=== PATIENT | male | born 1975 | race Caucasian/White ===

== ENCOUNTER 2024-02-26 20:55 | Inpatient (IN) | payer SELFPAY ==
[2024-02-26 20:59] VITALS: BP 153/90; PULSE 81; RESP 18; TEMP 36.6; O2SAT 92; BMI 27.8
--- NOTE | 2024-02-26 21:24 | ED.C_ITS ---
HPI - Psych 2 General: Chief Complaint: Psychiatric Symptoms Stated Complaint: MHE Time Seen by Provider: 02/26/24 21:09 Source: patient Mode of arrival: EMS Limitations: no limitations History of Present Illness: Patient is a 48-year-old male brought into the emergency department by ambulance due to suicidal ideations worsening over the past few days, though notes chronic history of similar. He states he is from [place] recently moved down here not too long ago and is currently staying in couple at a treatment facility centered around jainism believes, and states that since doing so he has been off his psychiatric meds. He reports to me a history of PTSD, anxiety, and depression, and states these have slowly been worsening since a family incident that he does not specify on He states that he started walking to the emergency department tonight but had an ambulance called on his behalf by bystander, and is tearful and anxious on presentation to the emergency department. States he can feel feelings of suicidal ideations building up inside him where he is getting more aggressive and believes that he is a danger to himself. He is compliant with an admission to a psychiatric facility at this time, reports history of previous. His plan at this time is to jump in front of a car, denies any attempts. He is denying any homicidal ideations, hallucinations, drug use, or other symptoms at this time. MD complaint: suicidal ideation and feels depressed Duration: constant and getting worse History of same: Yes Context: not taking psychiatric medications Associated psychiatric symptoms: depression and suicidal ideation Associated symptoms: Reports depression and suicidal ideation; Deny auditory hallucinations, visual hallucinations or homicidal ideation Treatments prior to arrival: none If self harm: admits thoughts of self harm and has plan Review of Systems 2 General: Reports: 10 or more systems reviewed and unremarkable except in HPI and below Const: Denies: fever(s), chills or fatigue Eyes: Denies: change in vision ENMT: Denies: throat pain, ear or mastoid pain or nasal discharge Card: Denies: chest pain, palpitations, swelling of feet/ankles or lightheadedness Resp: Denies: dyspnea, productive cough or wheezing GI: Denies: abdominal pain, nausea, vomiting, diarrhea or constipation : Denies: flank pain, difficulty urinating, dysuria or urinary frequency Musc: Denies: neck pain, back pain or joint pain Skin/Breast: Denies: rash Neuro: Denies: headache(s), numbness in extremities or weakness in extremities Psych: Reports: anxiety, depression and suicidal ideation; Denies: visual hallucinations, auditory hallucinations, tactile hallucinations or homicidal ideation Physical Exam 2 Const: COMMON NORMALS: no acute distress, patient oriented x3 and no limitations GENERAL APPEARANCE: cooperative, comfortable and well developed ORIENTATION/CONSCIOUSNESS: Yes awake, Yes oriented to person, Yes oriented to place and Yes oriented to time HENMT: COMMON NORMALS: normocephalic, atraumatic and hearing grossly normal bilaterally HEAD & SCALP: normocephalic and atraumatic Eye: COMMON NORMALS: Equal, round and reactive pupils present, EOMs intact bilaterally and conjunctivae normal CONJUNCTIVA: Yes conjunctivae normal P UPIL: Yes Equal, round and reactive pupils present Neck/C-Spine: COMMON NORMALS: full ROM, supple and no JVD Resp: COMMON NORMALS: normal respiratory effort, No retractions, No use of accessory muscles and clear to auscultation bilaterally AUSCULTATION: clear to auscultation bilaterally Cardio: COMMON NORMALS: no JVD, regular rate, regular rhythm, No clicks present (Cardio), No murmurs present (Cardio) and No rub (Cardio) RATE: r egular rate RHYTHM: regular rhythm Extremity: COMMON NORMALS: normal to inspection, full ROM and capillary refill normal Neuro: COMMON NORMALS: patient oriented x3, moves all extremities, no focal motor deficits and no sensory deficits noted SENSORIUM/ORIENTATION: Yes oriented to person, Yes oriented to place and Yes oriented to time Psych: COMMON NORMALS: mental status grossly normal and Normal thought process present APPEARANCE: Yes grossly normal ATTITUDE: Yes calm A CTIVITY/MOTOR BEHAVIOR: Yes Avoids eye contact (attititude/behavior) SPEECH: Yes soft MOOD & AFFECT: Yes anxious and Yes tearful THOUGHT PROCESS: N ormal thought process present THOUGHT CONTENT: Yes Suicidality present, No Homicidality present and No Hallucination(s) present ATTENTION/CONCENTRATION: Yes attention grossly intact MEMORY/COGNITION: Yes memory grossly intact Skin: COMMON NORMALS: no rashes or lesions noted GENERAL SKIN EXAM: no rashes or lesions noted Course 2 Vital Signs: Vital signs: Vital Signs Temperature 98 F 02/26/24 20:59 Pulse Rate 81 02/26/24 20:59 Respiratory Rate 18 02/26/24 20:59 Blood Pressure 153/90 02/26/24 20:59 Pulse Oximetry 92 02/26/24 20:59 MDM - Psych Medical Decision Making Patient was brought in by ambulance for suicidal ideations, worsening since unspecified incident with family. Has been off his medications for some time due to being in a jainism recovery system were they do not believe in medications, per the patient. Is compliant with admission at this time, states his suicidal ideations are building and plan was to jump in front of a car. Did speak with Dr. Hairston who agrees to accept the patient for admission to the NPU. Patient cleared medically. Dr. Thomast to put in admit orders at this time. Lab Data 02/26/24 21:45 02/26/24 21:45 Laboratory Results WBC 8.05 10^3/uL (3.29-11.43) 02/26/24 21:45 RBC 4.95 10^6/uL (3.85-5.65) 02/26/24 21:45 Hgb 15.50 g/dL (11.27-16.99) 02/26/24 21:45 Hct 46.2 % (37-53) 02/26/24 21:45 MCV 93.3 fl (82-101) 02/26/24 21:45 MCH 31.3 pg (27-33) 02/26/24 21:45 MCHC 33.5 g/dL (30-55) 02/26/24 21:45 RDW 12.2 % (12.1-15.1) 02/26/24 21:45 Plt Count 209 10^3/cmm (157-399) 02/26/24 21:45 MPV 10.3 fL (7.4-10.4) 02/26/24 21:45 Neut % (Auto) 67.4 % 02/26/24 21:45 Lymph % (Auto) 22.7 % 02/26/24 21:45 [place] % (Auto) 8.2 % 02/26/24 21:45 Eos % (Auto) 0.7 % 02/26/24 21:45 Baso % (Auto) 0.6 % 02/26/24 21:45 Neut # (Auto) 5.42 10^3/uL (1.8-7.7) 02/26/24 21:45 Lymph # (Auto) 1.8 10^3/uL (0.8-4.8) 02/26/24 21:45 [place] # (Auto) 0.7 10^3/uL (0.2-0.9) 02/26/24 21:45 Eos # (Auto) 0.1 10^3/uL (0.0-0.8) 02/26/24 21:45 Baso # (Auto) 0.1 10^3/uL (0.0-0.1) 02/26/24 21:45 Nucleated RBC % (auto) 0 % 02/26/24 21:45 Nucleated RBCs # 0.0 /100WBC 02/26/24 21:45 Sodium 141 mmol/L (136-145) 02/26/24 21:45 Potassium 4.3 mmol/L (3.5-5.1) 02/26/24 21:45 Chloride 104 mmol/L (98-107) 02/26/24 21:45 Carbon Dioxide 27 mmol/L (22-29) 02/26/24 21:45 Anion Gap 14.3 (5-19) 02/26/24 21:45 BUN 12 mg/dL (6-20) 02/26/24 21:45 Creatinine 1.0 mg/dL (0.7-1.2) 02/26/24 21:45 GFR Calculation 80.4 mL/min (90-130) L 02/26/24 21:45 Glucose 122 mg/dL (65-115) H 02/26/24 21:45 Calculated Osmolality 293 mOsm/kg (285-295) 02/26/24 21:45 Calcium 9.5 mg/dL (8.5-10.5) 02/26/24 21:45 Total Bilirubin 0.5 mg/dL (0.15-1.2) 02/26/24 21:45 AST 28 U/L (0-40) 02/26/24 21:45 ALT 46 U/L (0-41) H 02/26/24 21:45 Alkaline Phosphatase 93 U/L (40-130) 02/26/24 21:45 Total Protein 7.3 g/dL (6.6-8.7) 02/26/24 21:45 Albumin 4.7 g/dL (3.5-5.2) 02/26/24 21:45 Globulin 2.6 g/dL (1.3-4.6) 02/26/24 21:45 Salicylates < 0.3 mg/dL (3-10) L 02/26/24 21:45 Urine Opiates Screen Negative ng/mL (Negative) 02/26/24 21:39 Acetaminophen < 5.0 ug/mL (10-30) L 02/26/24 21:45 Ur Barbiturates Screen Negative ng/mL (Negative) 02/26/24 21:39 Ur Phencyclidine Scrn Negative ng/mL (Negative) 02/26/24 21:39 Ur Amphetamines Screen Negative ng/mL (Negative) 02/26/24 21:39 U Benzodiazepines Scrn Negative ng/mL (Negative) 02/26/24 21:39 Urine Cocaine Screen Negative ng/mL (Negative) 02/26/24 21:39 U Marijuana (THC) Screen Negative ng/mL (Negative) 02/26/24 21:39 Ethyl Alcohol < 10 mg/dL (0-10) 02/26/24 21:45 No radiology studies performed this visit Discharge Plan Discharge Patient Disposition: Admitted As Inpatient Clinical Impression: Suicidal ideation Condition: Stable Coding Level of Care Code ED Supervisor [employer] for Tala Perez
[2024-02-26 21:53] LABS: Basophils # 0.1 10^3/uL (0.0-0.1); Basophils % 0.6 %; Eosinophils # 0.1 10^3/uL (0.0-0.8); Eosinophils % 0.7 %; Hematocrit 46.2 % (37-53); Lymphocytes # 1.8 10^3/uL (0.8-4.8); Lymphocytes % 22.7 %; Mean Corpuscular HGB Conc 33.5 g/dL (30-55); Mean Corpuscular Hemoglobin 31.3 pg (27-33); Mean Corpuscular Volume 93.3 fl (82-101); Mean Platelet Volume 10.3 fL (7.4-10.4); Monocytes # 0.7 10^3/uL (0.2-0.9); Monocytes % 8.2 %; Neutrophils # 5.42 10^3/uL (1.8-7.7); Neutrophils % 67.4 %; Nucleated Red Blood Cells % 0 %; Platelet Count 209 10^3/cmm (157-399); Red Blood Count 4.95 10^6/uL (3.85-5.65); Red Cell Distribution Width 12.2 % (12.1-15.1); White Blood Count 8.05 10^3/uL (3.29-11.43)
[2024-02-26 22:09] LABS: Alanine Aminotransferase 46 U/L (0-41); Albumin Level 4.7 g/dL (3.5-5.2); Alkaline Phosphatase 93 U/L (40-130); Anion Gap 14.3 (5-19); Aspartate Amino Transferase 28 U/L (0-40); Blood Urea Nitrogen 12 mg/dL (6-20); Calcium 9.5 mg/dL (8.5-10.5); Carbon Dioxide 27 mmol/L (22-29); Chloride 104 mmol/L (98-107); Globulin 2.6 g/dL (1.3-4.6); Glomerular Filtration Rate 80.4 mL/min (90-130); Glucose 122 mg/dL (65-115); Osmolality Calculated 293 mOsm/kg (285-295); Potassium 4.3 mmol/L (3.5-5.1); Sodium 141 mmol/L (136-145); Total Bilirubin 0.5 mg/dL (0.15-1.2); Total Protein 7.3 g/dL (6.6-8.7)
[2024-02-26 22:11] LABS: Acetaminophen < 5.0 ug/mL (10-30); Alcohol Level < 10 mg/dL (0-10); Salicylate < 0.3 mg/dL (3-10)
[2024-02-26 22:36] LABS: Amphetamines Screen Urine Negative (Negative); Barbiturates Screen Urine Negative (Negative); Benzodiazepines Screen Urine Negative (Negative); Cocaine Screen Urine Negative (Negative); Opiate Screen Urine Negative (Negative); PCP Screen Urine Negative (Negative); THC Screen Urine Negative (Negative)
--- NOTE | 2024-02-27 | PC.NURSE ---
Patient placed on 96hr hold at 2357 02/26/24. Copy of patient rights provided to patient by this nurse and information security director. Patient verbalizes understanding and voices no questions at this time.
--- NOTE | 2024-02-27 02:15 | PC.NURSE ---
PT PROVIDED WITH FOOD AND DRINK PER HIS REQUEST. HE WAS THANKFUL AND DENIED FURTHER NEEDS.
[2024-02-27 06:00] VITALS: BP 148/80; PULSE 53; RESP 14; O2SAT 96
--- NOTE | 2024-02-27 09:32 | PC.NURSE ---
assumed pt care from Starla Flores RN @ 0915 pt in stable condition at time of care transfer. pt eating breakfast in room and is calm.
[2024-02-27 09:38] VITALS: BP 145/75; PULSE 56; TEMP 36.7; O2SAT 98
--- NOTE | 2024-02-27 18:04 | XRR_ITS ---
PROCEDURE INFORMATION: Exam: XR Chest Exam date and time: 02/27/2024 6:18 PM Age: 48 years old Clinical indication: Other: HTN TECHNIQUE: Imaging protocol: Radiologic exam of the chest. Views: 1 view. COMPARISON: No relevant prior studies available. FINDINGS: Lungs: Unremarkable. No consolidation. Pleural spaces: Unremarkable. No pleural effusion. No pneumothorax. Heart/Mediastinum: Unremarkable. No cardiomegaly. Bones/joints: Unremarkable. XR/XR chest 1V portable [id number] IMPRESSION: No acute findings.
[2024-02-27 18:14] VITALS: BP 159/98; PULSE 54; RESP 16; O2SAT 97
--- NOTE | 2024-02-27 18:15 | ECG_ITS ---
[facility] Test Date: 2024-02-27 Pat Name: Lan Mcclendon Department: Room: ED Gender: Male Head Of Data: : 1975 Requested By: Killian Armando Order Number: [id number] Oli MD: Carter Swift M.D. Measurements Intervals [place] Rate: 54 P: 23 WA: 134 QRS: 72 QRSD: 96 T: 53 QT: 440 QTc: 417 Interpretive Statements SINUS BRADYCARDIA No previous ECG available for comparison Electronically Signed On 02-27-2024 18:32:38 CDT by Carter Swift M.D. [id number]
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
[2024-02-27 19:28] LABS: Covid PCR NEGATIVE (Negative); Influenza A NEGATIVE (Negative); Influenza B NEGATIVE (Negative); Respiratory Syncytial Virus Ce NEGATIVE (Negative)
[2024-02-28] MEDS: quetiapine 100 mg Tablet 200 MG PO (00:19)
[2024-02-28] MEDS: lamoTRIgine 100 mg Tablet 200 MG PO (00:19)
--- NOTE | 2024-02-28 07:47 | PC.PHAR ---
Patient states he stopped taking medications ..did not state what the medications were . none come up in search . 02/28/24 7:48 am
[2024-02-28 11:36] VITALS: BP 120/58; PULSE 52; RESP 16; O2SAT 94
[2024-02-28 13:26] VITALS: BP 142/95; PULSE 63; RESP 18; TEMP 36.4; O2SAT 95
[2024-02-28 13:34] VITALS: BP 130/70; PULSE 55; RESP 17; O2SAT 99
[2024-02-28 14:00] VITALS: BP 119/74; PULSE 63; RESP 17; TEMP 36.6; O2SAT 96
[2024-02-28 14:34] LABS: Thyroid Stimulating Hormone 8.04 uIU/mL (0.27-4.20)
--- NOTE | 2024-02-28 14:44 | PC.NURSE ---
Patient arrived to the unit tearful. 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 Patient was very vague, but stated he was having issues with his ex- and kids and some missionaries found him sitting in the dirt after 30 days. He says they then flew him to [place] where he went to rehab at [facility] in [place]. Patient said they do not allow people to be on medications there and that he felt as if they were just using him for labor. 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 Patient said he could feel himself getting more depressed and didn't want to cause a scene so he left on foot with all of his belongings. He stated he thought about jumping in front of a car to end his life several times, but ended up having a passerby call for an ambulance. Patient has a longstanding history of alcohol and drug abuse. Patient states he has been to rehab at [place] and [facility] in [place]. He says he used to do an 8 ball with crushed up fentanyl and 3 balls of meth daily for several years. He states he also used to drink heavily. Patient endorse recurring periods of sobriety for years and then relapsing for years before going back to rehabilitation centers again. He states the last time he utilized fentanyl, meth, or marijuana was approximately 60 days ago. Patient cooperative with assessment.
--- NOTE | 2024-02-28 15:11 | PC.NURSE ---
When in [place] patient did take lamictal, suboxone, propranolol and seroquel according to the patient.
[2024-02-28] MEDS: nicotine 2 mg Gum BUCCAL (16:39)
--- NOTE | 2024-02-28 19:21 | P.NPUPN_ITS ---
Subjective NPU 2 Subjective: Patient presented today reporting that he is feeling okay. We had a long discussion about his addiction history and the circumstances that he discontinued Suboxone which was just prior to a relapse that led to some of the current challenges. We discussed the risks, benefits and alternatives of initiating Suboxone and he understood and agreed to proceed as is documented in this note. He denied any side effects to the medications and reportedly slept well last night. Mental Status Exam 2 MSE Comments: This is overweight, but well-developed white male in hospital scrubs with adequate grooming and fair eye contact. No abnormal movements except for psychomotor retardation. He was mostly cooperative with exam in mild to moderate distress. Speech was decreased rate and volume. Mood described as depressed,. His affect was subdued. Thought process was organized. Thought content: Patient endorsed suicidal but denied homicidal ideation. There were no delusions reported or noted, he did not report auditory or visual hallucinations. The patient exhibits signs of severe depression and hopelessness. He reports suicidal ideation and has had at least one suicide attempt in the past. He also reports feelings of anger and despair. The patient does not report any hallucinations but does experience nightmares and flashbacks. Attention and concentration were intact and his recent and remote memory appeared reliable, but none were formally tested. He is alert and oriented x 3. Insight and judgment are impaired. Impulse control is impaired. Vitals/I&O/Wt Last Vital Signs Temp 98 F 02/28/24 14:00 Pulse 80 02/28/24 19:56 Resp 18 02/28/24 19:56 BP 122/74 02/28/24 19:56 Pulse Ox 95 02/28/24 19:56 O2 Del Method Room Air 02/28/24 13:27 Data NPU 02/26/24 21:45 02/26/24 21:45 A&P Assessment and plan (1) Suicidal ideation: (2) Major depressive disorder, recurrent severe without psychotic features: (3) PTSD (post-traumatic stress disorder): (4) Opioid use disorder, severe, dependence: Plan This is a 48-year-old white male who presented on a 96-hour hold secondary to significant feelings of lethality and reporting a lifetime of mental health challenges. The patient is struggling with severe depression, anxiety, suicidal ideation, and substance abuse. His mental health issues appear to be long- standing and have been exacerbated by recent life stressors, including job loss, homelessness, and the loss of several family members. 1. Start Lamictal 50 mg p.o. daily and Seroquel 50 mg p.o. nightly. Will consider Suboxone. 2. Continue every 15 minute observation. 3. Encourage individual, group and milieu therapies. 4. Obtain collateral information. 5. Encourage sober living treatment after discharge at the highest level of care to which he is willing to commit. Involuntary Hold Information 2 96 Hour Hold: 96 Hour Involuntary Admission: Yes 96 Hour Hold Ending Date: 03/03/24 96 Hour Hold Ending Time: 00:01 Attestations NPU 2 Medical Necessity Statement*: Inpatient hospitalization is medically necessary and the clinically appropriate intervention at this time. We will monitor medication to make changes as indicated. His likely length of stay 3-5 days. Coding Level of Care Code Acute Code for [facility] Fwd Diagnoses Suicidal ideation R45.851 Major depressive disorder, recurrent severe without psychotic features F33.2 PTSD (post-traumatic stress disorder) F43.10 Opioid use disorder, severe, dependence F11.20
[2024-02-28 19:56] VITALS: BP 122/74; PULSE 80; RESP 18; O2SAT 95
[2024-02-28] MEDS: quetiapine 25 mg Tablet 50 MG PO (20:18)
[2024-02-28] MEDS: lamoTRIgine 25 mg Tablet 50 MG PO (20:18)
[2024-02-29 06:00] VITALS: BP 115/72; PULSE 57; RESP 16; TEMP 36.6; O2SAT 95
[2024-02-29] MEDS: lamoTRIgine 25 mg Tablet 50 MG PO (08:11)
[2024-02-29] MEDS: nicotine 2 mg Gum BUCCAL ×2 (08:11→13:12)
[2024-02-29 14:00] VITALS: BP 165/89; PULSE 60; RESP 17; TEMP 36.8; O2SAT 95
--- NOTE | 2024-02-29 16:08 | P.NPUPN_ITS ---
Subjective NPU 2 Subjective: Patient presented today reporting that he struggles with his depression and getting into these situations where he is unable to see possibilities of a positive future. We discussed the risk benefits and alternatives of restarting Suboxone and he understood and agreed to proceed as documented in this note. He is working with the social work team on options for sober living treatment. He denied any side effects to his medication. Mental Status Exam 2 MSE Comments: This is overweight, but well-developed white male in hospital scrubs with adequate grooming and fair eye contact. No abnormal movements except for psychomotor retardation. He was mostly cooperative with exam in mild to moderate distress. Speech was decreased rate and volume. Mood described as depressed,. His affect was subdued. Thought process was organized. Thought content: Patient endorsed suicidal but denied homicidal ideation. There were no delusions reported or noted, he did not report auditory or visual hallucinations. The patient exhibits signs of severe depression and hopelessness. He reports suicidal ideation and has had at least one suicide attempt in the past. He also reports feelings of anger and despair. The patient does not report any hallucinations but does experience nightmares and flashbacks. Attention and concentration were intact and his recent and remote memory appeared reliable, but none were formally tested. He is alert and oriented x 3. Insight and judgment are impaired. Impulse control is impaired. Vitals/I&O/Wt Last Vital Signs Temp 97.9 F 02/29/24 06:00 Pulse 57 L 02/29/24 06:00 Resp 16 02/29/24 06:00 BP 115/72 02/29/24 06:00 Pulse Ox 95 02/29/24 06:00 O2 Del Method Room Air 02/28/24 13:27 Data NPU 02/26/24 21:45 02/26/24 21:45 A&P Assessment and plan (1) Major depressive disorder, recurrent severe without psychotic features: (2) PTSD (post-traumatic stress disorder): (3) Opioid use disorder, severe, dependence: Plan This is a 48-year-old white male who presented on a 96-hour hold secondary to significant feelings of lethality and reporting a lifetime of mental health challenges. The patient is struggling with severe depression, anxiety, suicidal ideation, and substance abuse. His mental health issues appear to be long- standing and have been exacerbated by recent life stressors, including job loss, homelessness, and the loss of several family members. 1. Start Lamictal 50 mg p.o. daily and Seroquel 50 mg p.o. nightly. Start Suboxone 4/1 mg p.o. daily. 2. Continue every 15 minute observation. 3. Encourage individual, group and milieu therapies. 4. Obtain collateral information. 5. Encourage sober living treatment after discharge at the highest level of care to which he is willing to commit. Involuntary Hold Information 2 96 Hour Hold: 96 Hour Involuntary Admission: Yes 96 Hour Hold Ending Date: 03/03/24 96 Hour Hold Ending Time: 00:01 Attestations NPU 2 Medical Necessity Statement*: Inpatient hospitalization is medically necessary and the clinically appropriate intervention at this time. We will monitor medication to make changes as indicated. His likely length of stay 2-4 days. Coding Level of Care Code Acute Code for [facility] Fwd Diagnoses Major depressive disorder, recurrent severe without psychotic features F33.2 PTSD (post-traumatic stress disorder) F43.10 Opioid use disorder, severe, dependence F11.20
[2024-02-29] MEDS: buprenorphine-naloxone 4-1 mg Film 1 EACH SUBLINGUAL (17:07)
[2024-02-29 20:38] VITALS: BP 147/77; PULSE 70; RESP 18; TEMP 36.7; O2SAT 94
[2024-02-29] MEDS: quetiapine 25 mg Tablet 50 MG PO (20:41)
[2024-03-01 06:00] VITALS: BP 100/54; PULSE 65; RESP 18; TEMP 36.6; O2SAT 95
[2024-03-01] MEDS: buprenorphine-naloxone 4-1 mg Film 1 EACH SUBLINGUAL ×2 (08:27→18:30)
[2024-03-01] MEDS: lamoTRIgine 25 mg Tablet 50 MG PO (08:27)
[2024-03-01] MEDS: nicotine 2 mg Gum BUCCAL ×2 (11:20→13:43)
[2024-03-01 14:00] VITALS: BP 125/76; PULSE 68; RESP 16; TEMP 36.5; O2SAT 96
[2024-03-01] MEDS: hyDROXYzine 25 mg Capsule 50 MG PO (19:19)
--- NOTE | 2024-03-01 19:47 | P.NPUPN_ITS ---
Subjective NPU 2 Subjective: Patient presented today reporting that he is doing okay. He endorsed that he is trying to get himself to go away from his tendencies to get in negative thought loops. He reports that he is working with the social work team on some different sober living options that would be long-term and allow him to get his legs back under him. He denied any side effects of the medication. Mental Status Exam 2 MSE Comments: This is overweight, but well-developed white male in hospital scrubs with adequate grooming and fair eye contact. No abnormal movements except for psychomotor retardation. He was mostly cooperative with exam in mild to moderate distress. Speech was decreased rate and volume. Mood described as depressed, but trying to be optimistic his affect was subdued. Thought process was organized. Thought content: Patient denied active suicidal or homicidal ideation. There were no delusions reported or noted, he did not report auditory or visual hallucinations. The patient exhibits signs of severe depression and hopelessness. He reports suicidal ideation and has had at least one suicide attempt in the past. He also reports feelings of anger and despair. The patient does not report any hallucinations but does experience nightmares and flashbacks. Attention and concentration were intact and his recent and remote memory appeared reliable, but none were formally tested. He is alert and oriented x 3. Insight and judgment are impaired. Impulse control is impaired. Vitals/I&O/Wt Last Vital Signs Temp 97.9 F 03/01/24 19:57 Pulse 68 03/01/24 19:57 Resp 18 03/01/24 19:57 BP 138/63 03/01/24 19:57 Pulse Ox 92 03/01/24 19:57 O2 Del Method Room Air 03/01/24 06:00 Data NPU 02/26/24 21:45 02/26/24 21:45 A&P Assessment and plan (1) Major depressive disorder, recurrent severe without psychotic features: (2) PTSD (post-traumatic stress disorder): (3) Opioid use disorder, severe, dependence: Plan This is a 48-year-old white male who presented on a 96-hour hold secondary to significant feelings of lethality and reporting a lifetime of mental health challenges. The patient is struggling with severe depression, anxiety, suicidal ideation, and substance abuse. His mental health issues appear to be long- standing and have been exacerbated by recent life stressors, including job loss, homelessness, and the loss of several family members. 1. Start Lamictal 50 mg p.o. daily and Seroquel 50 mg p.o. nightly. Started Suboxone 4/1 mg sublingual daily. Increased to 4/1 mg sublingual twice daily 2. Continue every 15 minute observation. 3. Encourage individual, group and milieu therapies. 4. Obtain collateral information. 5. Encourage sober living treatment after discharge at the highest level of care to which he is willing to commit. He is working with the social work team on some sober living options. Involuntary Hold Information 2 96 Hour Hold: 96 Hour Involuntary Admission: Yes 96 Hour Hold Ending Date: 03/03/24 96 Hour Hold Ending Time: 00:01 Attestations NPU 2 Medical Necessity Statement*: Inpatient hospitalization is medically necessary and the clinically appropriate intervention at this time. We will monitor medication to make changes as indicated. His likely length of stay 2-4 days. Coding Level of Care Code Acute Code for [facility] Fwd Diagnoses Major depressive disorder, recurrent severe without psychotic features F33.2 PTSD (post-traumatic stress disorder) F43.10 Opioid use disorder, severe, dependence F11.20
[2024-03-01 19:57] VITALS: BP 138/63; PULSE 68; RESP 18; TEMP 36.6; O2SAT 92
[2024-03-01] MEDS: ondansetron 4 MG Tablet PO (20:19)
[2024-03-02 06:00] VITALS: BP 123/63; PULSE 58; RESP 18; O2SAT 94
[2024-03-02] MEDS: acetaminophen 325 mg Tablet 650 MG PO (08:46)
[2024-03-02] MEDS: nicotine 2 mg Gum BUCCAL (08:46)
[2024-03-02] MEDS: buprenorphine-naloxone 4-1 mg Film 1 EACH SUBLINGUAL ×2 (08:46→17:55)
[2024-03-02] MEDS: polyethylene glycol 3350 Pkt 17 gm PO (08:46)
[2024-03-02] MEDS: lamoTRIgine 25 mg Tablet 50 MG PO (08:46)
[2024-03-02] MEDS: hyDROXYzine 25 mg Capsule 50 MG PO ×2 (08:46→20:34)
--- NOTE | 2024-03-02 09:33 | PC.NURSE ---
IN DAY ROOM. PT STATES HE WAS NOT ABLE TO SLEEP LAST NIGHT. PT REPORTS HEADACHE PAIN 7/10 TYLENOL 650MG WAS GIVEN ORDERED. DENIES SI/HI AND AVH AT THIS TIME. RATES ANXIETY /10 AND DEPRESSION /10. PT WAS GIVEN VISTARIL 50 MG ORDERED FOR INCREASED ANXIETY. PT STATES GOAL FOR THE DAY IS PRACTICE PATIENCE. PT STATES HE IS TRYING TO GET INTO THE [facility] PROGRAM AND IS EXCITED TO GET STARTED IN HIS LIFE AGAIN. PT REPORTS SEVERAL DEATHS IN HIS FAMILY AND A RECENT DIVORCE. RN EDUCATED PT ON GRIEF AND COPING SKILLS. 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 ALL QUESTIONS WERE ANSWERED AND SUPPORT WAS VOICED. PT REQUESTS DOUBLE PORTIONS WITH MEALS. ORDERS RECEIVED FROM DR. CALDERON. ORDER PLACED.
[2024-03-02 14:00] VITALS: BP 136/69; PULSE 58; RESP 18; TEMP 36.6; O2SAT 93
--- NOTE | 2024-03-02 14:14 | PC.NURSE ---
PT CONTINUES TO REPORT NO BM AFTER RECEIVING MIRALAX 17 GRAMS THIS AM. NEW ORDERS RECEIVED FROM DR. CALDERON TO GIVEN DULCUL;AX 5 MG PO Q DAY PRN CONSTIPATION. SUPPORT VOICED.
[2024-03-02] MEDS: bisacodyl 5 mg Tablet PO (14:23)
--- NOTE | 2024-03-02 18:31 | P.NPUPN_ITS ---
Subjective NPU 2 Subjective: Patient presented today reporting that things have been going okay. We identified challenges with some of the programming secondary to his Suboxone. He had previously reported significant success with the Suboxone and expressed concerns about how he would be able to manage overall without that medication. We discussed what a program would look like if he had to put 1 together himself using resources like [employer]. He endorsed a clear commitment to his ongoing recovery but is trying to figure out how he can do that and maintain the Suboxone Mental Status Exam 2 MSE Comments: This is overweight, but well-developed white male in hospital scrubs with adequate grooming and fair eye contact. No abnormal movements except for psychomotor retardation. He was mostly cooperative with exam in mild to moderate distress. Speech was decreased rate and volume. Mood described as depressed, but trying to be optimistic his affect was subdued. Thought process was organized. Thought content: Patient denied active suicidal or homicidal ideation. There were no delusions reported or noted, he did not report auditory or visual hallucinations. The patient exhibits signs of severe depression and hopelessness. He reports suicidal ideation and has had at least one suicide attempt in the past. He also reports feelings of anger and despair. The patient does not report any hallucinations but does experience nightmares and flashbacks. Attention and concentration were intact and his recent and remote memory appeared reliable, but none were formally tested. He is alert and oriented x 3. Insight and judgment are impaired. Impulse control is impaired. Vitals/I&O/Wt Last Vital Signs Temp 97.8 F 03/02/24 19:38 Pulse 56 L 03/02/24 19:38 Resp 18 03/02/24 19:38 BP 107/75 03/02/24 19:38 Pulse Ox 94 03/02/24 19:38 O2 Del Method Room Air 03/01/24 06:00 Data NPU 02/26/24 21:45 02/26/24 21:45 A&P Assessment and plan (1) Major depressive disorder, recurrent severe without psychotic features: (2) PTSD (post-traumatic stress disorder): (3) Opioid use disorder, severe, dependence: Plan This is a 48-year-old white male who presented on a 96-hour hold secondary to significant feelings of lethality and reporting a lifetime of mental health challenges. The patient is struggling with severe depression, anxiety, suicidal ideation, and substance abuse. His mental health issues appear to be long- standing and have been exacerbated by recent life stressors, including job loss, homelessness, and the loss of several family members. 1. Start Lamictal 50 mg p.o. daily and Seroquel 50 mg p.o. nightly. Started Suboxone 4/1 mg sublingual daily. Increased to 4/1 mg sublingual twice daily 2. Continue every 15 minute observation. 3. Encourage individual, group and milieu therapies. 4. Obtain collateral information. 5. Encourage sober living treatment after discharge at the highest level of care to which he is willing to commit. He is working with the social work team on some sober living options. Looking for a possible plan to allow him to continue the Suboxone. This was the reason he was not excepted in [employer] [facility]. Involuntary Hold Information 2 96 Hour Hold: 96 Hour Involuntary Admission: Yes 96 Hour Hold Ending Date: 03/03/24 96 Hour Hold Ending Time: 00:01 Attestations NPU 2 Medical Necessity Statement*: Inpatient hospitalization is medically necessary and the clinically appropriate intervention at this time. We will monitor medication to make changes as indicated. His likely length of stay 2-4 days. Coding Level of Care Code Acute Code for [facility] Fwd Diagnoses Major depressive disorder, recurrent severe without psychotic features F33.2 PTSD (post-traumatic stress disorder) F43.10 Opioid use disorder, severe, dependence F11.20
[2024-03-02 19:38] VITALS: BP 107/75; PULSE 56; RESP 18; TEMP 36.6; O2SAT 94
[2024-03-02] MEDS: docusate sodium 100 mg Capsule 200 MG PO (20:34)
[2024-03-02] MEDS: quetiapine 25 mg Tablet 50 MG PO (20:35)
[2024-03-03] MEDS: buprenorphine-naloxone 4-1 mg Film 1 EACH SUBLINGUAL ×2 (08:40→17:53)
[2024-03-03] MEDS: polyethylene glycol 3350 Pkt 17 gm PO (08:40)
[2024-03-03] MEDS: lamoTRIgine 25 mg Tablet 50 MG PO (08:40)
--- NOTE | 2024-03-03 09:42 | PC.NURSE ---
PT CURRENTLY DENIES SI/HI/AH/VH. PT CURRENTLY DENIES DEPRESSION. PT CURRENTLY ENDORSES ANXIETY RATING IT AN 8/10 ON A 0-10 SCALE WHERE 0 IS NONE AND 10 IS THE WORST POSSIBLE. PT CONTINUES TO HAVE COMPLAINTS OF NO BM. PT RECEIVED MIRALAX PER ORDERS. IF PT DOES NOT HAVE A BM TODAY WILL SPEAK WITH PHYSICIAN ABOUT FURTHER TREATMENT. PT CURRENT NEEDS ARE MET AT THIS TIME.
[2024-03-03] MEDS: magnesium citrate Btl 296 mL PO (13:45)
[2024-03-03 14:00] VITALS: BP 128/75; PULSE 54; RESP 18; TEMP 37; O2SAT 96
--- NOTE | 2024-03-03 16:23 | W.PM.NPUPNS ---
Subjective NPU Subjective: Patient presented today reporting that things are going fairly well. He reports that he continues to be quite thoughtful about what is going to do next and is trying to put together a plan that will allow him to regain his sobriety and to get his life back on track. He reports working with the social work team and that they have a plan for some possible options on Wednesday. He denied any side effects to his medication and reports some of the abdominal issues that he has had with restarting the Suboxone are starting to subside. Mental Status Exam MSE Comments: This is overweight, but well-developed white male in hospital scrubs with adequate grooming and fair eye contact. No abnormal movements except for psychomotor retardation. He was mostly cooperative with exam in mild to moderate distress. Speech was decreased rate and volume. Mood described as depressed, but trying to be optimistic his affect was subdued. Thought process was organized. Thought content: Patient denied active suicidal or homicidal ideation. There were no delusions reported or noted, he did not report auditory or visual hallucinations. The patient exhibits signs of severe depression and hopelessness. He reports suicidal ideation and has had at least one suicide attempt in the past. He also reports feelings of anger and despair. The patient does not report any hallucinations but does experience nightmares and flashbacks. Attention and concentration were intact and his recent and remote memory appeared reliable, but none were formally tested. He is alert and oriented x 3. Insight and judgment are impaired. Impulse control is impaired. Vitals/I&O/Wt Last Vital Signs Temp 98.6 F 03/03/24 14:00 Pulse 54 L 03/03/24 14:00 Resp 18 03/03/24 14:00 BP 128/75 03/03/24 14:00 Pulse Ox 96 03/03/24 14:00 O2 Del Method Room Air 03/01/24 06:00 Data NPU 02/26/24 21:45 02/26/24 21:45 A&P Assessment and plan (1) Major depressive disorder, recurrent severe without psychotic features: (2) PTSD (post-traumatic stress disorder): (3) Opioid use disorder, severe, dependence: Plan This is a 48-year-old white male who presented on a 96-hour hold secondary to significant feelings of lethality and reporting a lifetime of mental health challenges. The patient is struggling with severe depression, anxiety, suicidal ideation, and substance abuse. His mental health issues appear to be long-standing and have been exacerbated by recent life stressors, including job loss, homelessness, and the loss of several family members. 1. Start Lamictal 50 mg p.o. daily and Seroquel 50 mg p.o. nightly. Started Suboxone 4/1 mg sublingual daily. Increased to 4/1 mg sublingual twice daily 2. Continue every 15 minute observation. 3. Encourage individual, group and milieu therapies. 4. Obtain collateral information. 5. Encourage sober living treatment after discharge at the highest level of care to which he is willing to commit. He is working with the social work team on some sober living options. Looking for a possible plan to allow him to continue the Suboxone. This was the reason he was not excepted in [facility] [facility]. Involuntary Hold Information 96 Hour Hold: 96 Hour Involuntary Admission: Yes 96 Hour Hold Ending Date: 03/03/24 96 Hour Hold Ending Time: 00:01 Attestations NPU Medical Necessity Statement*: Inpatient hospitalization is medically necessary and the clinically appropriate intervention at this time. We will monitor medication to make changes as indicated. His likely length of stay 2-4 days. Coding Level of Care Code Acute Code for [facility] Fwd Diagnoses Major depressive disorder, recurrent severe without psychotic features F33.2 PTSD (post-traumatic stress disorder) F43.10 Opioid use disorder, severe, dependence F11.20
[2024-03-03] MEDS: nicotine 2 mg Gum BUCCAL (20:14)
[2024-03-03 20:32] VITALS: BP 137/80; PULSE 71; RESP 18; TEMP 37; O2SAT 94
--- NOTE | 2024-03-03 21:58 | PC.NURSE ---
Patient wanted to hold this evenings Quetiapine 50 mg dose R/T finally having bowel movement and fear of soiling himself while sleeping.
[2024-03-04] MEDS: nicotine 2 mg Gum BUCCAL (02:17)
[2024-03-04 05:50] VITALS: BP 122/79; PULSE 64; RESP 18; TEMP 36.7; O2SAT 94
[2024-03-04] MEDS: buprenorphine-naloxone 4-1 mg Film 1 EACH SUBLINGUAL ×2 (08:16→17:45)
[2024-03-04] MEDS: lamoTRIgine 25 mg Tablet 50 MG PO (08:16)
[2024-03-04] MEDS: polyethylene glycol 3350 Pkt 17 gm PO (08:17)
[2024-03-04] MEDS: nicotine 4 mg lozenge MUCOUS MEM ×3 (09:58→20:32)
[2024-03-04 14:00] VITALS: BP 114/70; PULSE 64; RESP 16; TEMP 36.8; O2SAT 92
--- NOTE | 2024-03-04 16:17 | P.NPUPN_ITS ---
Subjective NPU 2 Subjective: Patient presented today reporting that he is feeling really positive about having come to the hospital and is appreciative of the treatment he has received. He reports he continues to work with [facility] in the social work team on possible strategies for Wednesday. Would likely discharge at the beginning of the week. We discussed the fact that Dr. Lockett be here tomorrow and he will be the one making all decisions moving forward. He denied any side effects to the medication. Mental Status Exam 2 MSE Comments: This is overweight, but well-developed white male in hospital scrubs with adequate grooming and fair eye contact. No abnormal movements except for psychomotor retardation. He was mostly cooperative with exam in mild distress. Speech was decreased rate and volume. Mood described as depressed, but trying to be optimistic his affect was subdued. Thought process was organized. Thought content: Patient denied active suicidal or homicidal ideation. There were no delusions reported or noted, he did not report auditory or visual hallucinations. Attention and concentration were intact and his recent and remote memory appeared reliable, but none were formally tested. He is alert and oriented x 3. Insight and judgment are impaired. Impulse control is impaired. Vitals/I&O/Wt Last Vital Signs Temp 98.3 F 03/04/24 14:00 Pulse 64 03/04/24 14:00 Resp 16 03/04/24 14:00 BP 114/70 03/04/24 14:00 Pulse Ox 92 03/04/24 14:00 O2 Del Method Room Air 03/04/24 14:00 Data NPU 02/26/24 21:45 02/26/24 21:45 A&P Assessment and plan (1) Major depressive disorder, recurrent severe without psychotic features: (2) PTSD (post-traumatic stress disorder): (3) Opioid use disorder, severe, dependence: Plan This is a 48-year-old white male who presented on a 96-hour hold secondary to significant feelings of lethality and reporting a lifetime of mental health challenges. The patient is struggling with severe depression, anxiety, suicidal ideation, and substance abuse. His mental health issues appear to be long- standing and have been exacerbated by recent life stressors, including job loss, homelessness, and the loss of several family members. 1. Start Lamictal 50 mg p.o. daily and Seroquel 50 mg p.o. nightly. Started Suboxone 4/1 mg sublingual daily. Increased to 4/1 mg sublingual twice daily 2. Continue every 15 minute observation. 3. Encourage individual, group and milieu therapies. 4. Obtain collateral information. 5. Encourage sober living treatment after discharge at the highest level of care to which he is willing to commit. He is working with the social work team on some sober living options. Looking for a possible plan to allow him to continue the Suboxone. This was the reason he was not excepted in [facility]. Exploring discharge options with the beginning of the week with social work team. Involuntary Hold Information 2 96 Hour Hold: 96 Hour Involuntary Admission: Yes 96 Hour Hold Ending Date: 03/03/24 96 Hour Hold Ending Time: 00:01 Attestations NPU 2 Medical Necessity Statement*: Inpatient hospitalization is medically necessary and the clinically appropriate intervention at this time. We will monitor medication to make changes as indicated. His likely length of stay 2-3 days. Coding Level of Care Code Acute Code for [facility] Diagnoses Major depressive disorder, recurrent severe without psychotic features F33.2 PTSD (post-traumatic stress disorder) F43.10 Opioid use disorder, severe, dependence F11.20
[2024-03-04] MEDS: quetiapine 25 mg Tablet 50 MG PO (20:32)
[2024-03-04] MEDS: benzocaine 20% 7 gm 1 APPLIC MUCOUS MEM (20:32)
[2024-03-04 21:35] VITALS: BP 136/75; PULSE 62; RESP 18; TEMP 36.6; O2SAT 94
[2024-03-05 06:00] VITALS: BP 120/53; PULSE 67; RESP 17; O2SAT 95
[2024-03-05] MEDS: nicotine 4 mg lozenge MUCOUS MEM ×4 (06:31→19:01)
[2024-03-05] MEDS: lamoTRIgine 25 mg Tablet 50 MG PO (08:53)
[2024-03-05] MEDS: buprenorphine-naloxone 4-1 mg Film 1 EACH SUBLINGUAL ×2 (08:54→19:01)
--- NOTE | 2024-03-05 09:18 | PC.NURSE ---
PT REFUSED MORNING DOSE OF MIRALAX STATING I HAD DIARRHEA ALL DAY YESTERDAY, THAT STUFF WORKS GREAT. PHYSICIAN NOTIFIED NO NEW ORDERS AT THIS TIME.
[2024-03-05 14:00] VITALS: BP 116/62; PULSE 61; RESP 18; TEMP 36.6; O2SAT 95
--- NOTE | 2024-03-05 19:43 | P.NPUPN_ITS ---
Subjective NPU 2 Subjective: 48-year-old male admitted with depressio n and suicidal ideation with the recent relapse on opiates currently on Suboxone. He had endorsed continued PTSD symptoms. He reported some sleep continuity disruption and reported having frequent nightmares regarding prior trauma. He had reported the of numerous family members. He had reported less cravings with the Suboxone at this time. He reported having previously been on multiple medications for treating depression. He had continued IP isolate on the milieu. He denied any psychotic symptoms. He had expressed motivation to resume work and remain sober particularly off of opiates. Mental Status Exam 2 MSE Comments: This is overweight, but well-developed white male in hospital scrubs with adequate grooming and fair eye contact. No abnormal movements except for psychomotor retardation. He was mostly cooperative with exam in mild distress. Speech was decreased rate and volume. Mood again described as depressed. His affect was subdued. Thought process was organized. Thought content: Patient denied active suicidal or homicidal ideation. There were no delusions reported or noted, he did not report auditory or visual hallucinations. Attention and concentration were intact and his recent and remote memory appeared reliable, but none were formally tested. He is alert and oriented x 3. Insight and judgment are impaired. Impulse control is poor. Vitals/I&O/Wt Last Vital Signs Temp 98 F 03/05/24 14:00 Pulse 61 03/05/24 14:00 Resp 18 03/05/24 14:00 BP 116/62 03/05/24 14:00 Pulse Ox 95 03/05/24 14:00 O2 Del Method Room Air 03/05/24 06:00 Weight last 48 hrs Weight 107.501 kg Data NPU 02/26/24 21:45 02/26/24 21:45 A&P Assessment and plan (1) Major depressive disorder, recurrent severe without psychotic features: (2) PTSD (post-traumatic stress disorder): (3) Opioid use disorder, severe, dependence: Plan This is a 48-year-old white male who presented on a 96-hour hold secondary to significant feelings of lethality and reporting a lifetime of mental health challenges. The patient is struggling with severe depression, anxiety, suicidal ideation, and substance abuse. His mental health issues appear to be long- standing and have been exacerbated by recent life stressors, including job loss, homelessness, and the loss of several family members. 1. Continue Lamictal 50 mg p.o. daily and increase Seroquel 75 mg p.o. nightly. Continue Suboxone 4mg/1mg SL bid. 2. Continue every 15 minute observation. 3. Encourage individual, group and milieu therapies. 4. Obtain collateral information. 5. Encourage sober living treatment after discharge at the highest level of care to which he is willing to commit. He is working with the social work team on some sober living options. Looking for a possible plan to allow him to continue the Suboxone. This was the reason he was not excepted in [facility]. Exploring discharge options with the beginning of the week with social work team. Involuntary Hold Information 2 96 Hour Hold: 96 Hour Involuntary Admission: Yes 96 Hour Hold Ending Date: 03/03/24 96 Hour Hold Ending Time: 00:01 Attestations NPU 2 Medical Necessity Statement*: Inpatient hospitalization is medically necessary and the clinically appropriate intervention at this time. We will monitor medication to make changes as indicated. His likely length of stay 2-3 days. Coding Level of Care Code Acute Code for [facility] Fwd Diagnoses Major depressive disorder, recurrent severe without psychotic features F33.2 PTSD (post-traumatic stress disorder) F43.10 Opioid use disorder, severe, dependence F11.20
[2024-03-05] MEDS: quetiapine 25 mg Tablet 75 MG PO (21:02)
[2024-03-05 22:00] VITALS: BP 151/91; PULSE 60; RESP 18; TEMP 36.6; O2SAT 96
[2024-03-06 06:00] VITALS: BP 117/72; PULSE 64; RESP 16; TEMP 36.7; O2SAT 95
[2024-03-06] MEDS: polyethylene glycol 3350 Pkt 17 gm PO (08:29)
[2024-03-06] MEDS: lamoTRIgine 25 mg Tablet 50 MG PO (08:30)
[2024-03-06] MEDS: nicotine 4 mg lozenge MUCOUS MEM ×2 (08:30→12:36)
[2024-03-06] MEDS: buprenorphine-naloxone 4-1 mg Film 1 EACH SUBLINGUAL (08:30)
[2024-03-06 13:45] VITALS: BP 109/63; PULSE 59; RESP 16; TEMP 36.6; O2SAT 97
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
[2024-03-06 14:59] VITALS: BP 109/63; PULSE 59; RESP 16; TEMP 36.6; O2SAT 97
== END 2024-03-06 15:53 | disposition home or self-care (01) | DRG 885 ==
LOC: ER 22:39 → ER IP 23:28 → NP 02-28 13:06
PROVIDERS: Emergency Medicine; Admitting Provider Psychiatry & Neurology Psychiatry; Emergency Provider Physician Assistant; Visit Provider Psychiatry & Neurology Psychiatry
DX: F33.2 Major depressive disorder, recurrent severe without psychotic features (principal); R45.851 Suicidal ideations; F11.20 Opioid dependence, uncomplicated; Z59.00 Homelessness unspecified; Z62.819 Personal history of unspecified abuse in childhood; Z88.8 Allergy status to other drugs, medicaments and biological substances; F43.10 Post-traumatic stress disorder, unspecified; F41.9 Anxiety disorder, unspecified; Z91.51 Personal history of suicidal behavior; Z63.4 Disappearance and death of family member; Z56.0 Unemployment, unspecified; Z63.5 Disruption of family by separation and divorce
CPT/HCPCS: 0241U; 36415; 71045; 80053; 80306; 80307; 84443; 85025; 93005; 97150; 97165; 99285; J0573; Q0162

== ENCOUNTER 2024-04-12 09:05 | Emergency (ER) | payer MEDICAID, SELFPAY ==
[2024-04-12 09:14] VITALS: BP 137/115; PULSE 109; RESP 20; TEMP 36.7; O2SAT 98
--- NOTE | 2024-04-12 09:48 | ED_ITS ---
HPI - Anxiety General: Chief Complaint: Anxiety Stated Complaint: panic attacks Time Seen by Provider: 04/12/24 09:48 History of Present Illness: Patient presents [facility] to the ER with complaints of being very anxious and having panic attacks. Patient denies suicidal homicidal ideation at this time. Patient was seen here and then transferred to a rehab center he is only been out for several days. Patient relapsed on meth. Patient does appear very anxious and restlessness patient does not want to go back to the inpatient psychiatric facility. He just wants his refills. Patient is on Suboxone, Lamictal, Seroquel, he was informed that ER does not prescribe the Suboxone but we can do the Lamictal and the Seroquel. Patient is okay with this. Related Data Home Medications Medication Instructions Recorded Confirmed buprenorphine 4 mg-naloxone 1 mg 1 film buccal BID 04/12/24 04/12/24 sublingual film Previous Rx's Medication Instructions Recorded lamotrigine 100 mg tablet 50 mg (1/2 x 100 mg) PO DAILY 30 03/06/24 days #15 tabs quetiapine 100 mg tablet 100 mg PO BEDTIME 30 days #30 tabs 03/06/24 lamotrigine 100 mg tablet 50 mg (1/2 x 100 mg) PO DAILY #14 04/12/24 (Lamictal) tabs quetiapine 100 mg tablet (Seroquel) 100 mg PO .Nightly #30 tabs 04/12/24 Allergies Allergy/AdvReac Type Severity Reaction Status Date / Time aripiprazole [From Abilify] Allergy Unknown Verified 02/28/24 07:46 buspirone Allergy Unknown Verified 02/28/24 07:46 Review of Systems General: Reports: 10 or more systems reviewed and unremarkable except in HPI and below Physical Exam Const: COMMON NORMALS: no acute distress, average body habitus, patient oriented x3, no limitations, healthy appearing, alert and well nourished HENMT: COMMON NORMALS: normocephalic, atraumatic, hearing grossly normal bilaterally, external ears normal, Normal external nose present and moist oral mucous membranes HEAD & SCALP: normocephalic and atraumatic NOSE: Normal external nose present EXTERNAL EAR: Yes external ears normal Neck/C-Spine: COMMON NORMALS: no JVD Chest: COMMONS NORMALS: normal inspection of the chest and normal palpation of entire chest wall Resp: COMMON NORMALS: normal respiratory effort, No retractions and No use of accessory muscles Cardio: COMMON NORMALS: no JVD, regular rate, regular rhythm, S1 normal heart sound present, S2 normal heart sound present, No gallops present (Cardio), No clicks present (Cardio), No murmurs present (Cardio) and No rub (Cardio) RATE: regular rate RHYTHM: regular rhythm HEART SOUNDS: S1 normal heart sound present and S2 normal heart sound present GI: COMMON NORMALS: Normal to inspection, nondistended, normoactive bowel vivian nds present, Soft to palpation, non-tender, No hepatosplenomegaly present and no masses PALPATION: Yes Soft to palpation and Yes No hepatosplenomegaly present Neuro: COMMON NORMALS: patient oriented x3 SENSORIUM/ORIENTATION: Yes alert Course Vital Signs: Vital signs: Vital Signs Temperature 98.1 F 04/12/24 09:14 Pulse Rate 102 H 04/12/24 09:49 Respiratory Rate 20 H 04/12/24 09:14 Blood Pressure 129/104 04/12/24 09:49 Pulse Oximetry 99 04/12/24 09:49 Oxygen Delivery Me thod Room Air 04/12/24 09:49 MDM - Anxiety Medical Decision Making We will refill the patient's Lamictal and Seroquel discharge him. Patient states that when he gets paid tomorrow he is [facility] He [facility] the best that treatment center. Patient is aware we cannot prescribe him the Suboxone and he is okay with this. Differential Diagnosis Likely acute anxiety Lab Data I reviewed the patient's lab results. No radiology studies performed this visit Discharge Plan Discharge Patient Disposition: Home Clinical Impression: Acute anxiety Condition: Stable Prescriptions: New lamotrigine [Lamictal] 100 mg tablet 50 mg PO DAILY Qty: 14 0RF quetiapine [Seroquel] 100 mg tablet 100 mg PO .Nightly Qty: 30 0RF No Action quetiapine 100 mg Tablet 100 mg PO BEDTIME 30 Days Qty: 30 1RF lamotrigine 100 mg tablet 50 mg PO DAILY 30 Days Qty: 15 1RF buprenorphine-naloxone 4-1 mg film 1 film buccal BID Discharge Orders: Discharge ED (Routine); Ordered 04/12/24 Ordered By: Killian Armando Patient Instructions: Anxiety (ED) Activity Restrictions/Additional Instructions: Thank you for choosing [facility] for your healthcare needs today. Please realize that you were seen in the emergency department and that we are providing you with an emergency medical screening exam and this may not be a complete and all exclusive of all testing and/or medical workup we may need to determine your element or severity of your illness. It is very important that you follow-up as instructed with your primary care provider or specialist for the additional evaluation and to discuss your medical treatment plan. You may return to the emergency department should you have concerns or if your condition changes or worsens in any way. Coding Level of Care Code ED [facility] for Tala Perez
[2024-04-12 09:49] VITALS: BP 129/104; PULSE 102; O2SAT 99
[2024-04-12 10:00] VITALS: PULSE 100; O2SAT 94
[2024-04-12] MEDS: LORazepam 1 mg Tablet PO (10:17)
[2024-04-12 11:23] VITALS: BP 105/69; PULSE 101; O2SAT 99
== END 2024-04-12 11:15 | disposition home or self-care (01) ==
PROVIDERS: Emergency Provider Emergency Medicine
DX: F41.8 Other specified anxiety disorders (principal)
CPT/HCPCS: 99283